=== PATIENT | female | born 1940 | race African-American/Black ===

== ENCOUNTER 2017-08-26 09:12 | Inpatient (IN) | payer BC, MEDICAID ==
[~2017-08-26] VITALS: Ht 157.5 cm; Wt 59.0 kg
[2017-08-26] MEDS ORDERED: NITROGLYCERIN OINT 1GM/INCH UDPKT TD ONE (09:30)
[2017-08-26] MEDS ORDERED: ASPIRIN 81MG TABLET PO ONE (09:30)
[2017-08-26 10:04] LABS: BASOPHILS % 0.3 % (0.0-2.0); EOSINOPHILS % 1.4 % (0.0-5.0); HEMATOCRIT. 39.9 % (36.0-48.0); HEMOGLOBIN. 13.2 g/dL (12.0-16.0); LYMPHOCYTES % 12.1 % (20.0-50.0); MEAN CORPUSCULAR HEMOGLOBIN 27.2 pg (28.0-32.0); MEAN CORPUSCULAR VOLUME 82.4 fL (81.0-99.0); MEAN PLATELET VOLUME 7.1 fl (7.4-10.4); MONOCYTES % 10.4 % (2.0-8.0); NEUTROPHILS % 75.8 % (40.0-76.0); PLATELET 251 x1000/uL (130-400); RED BLOOD CELL COUNT 4.84 mill/uL (4.2-5.4); RED CELL DISTRIBUTION WIDTH 16.9 % (11.6-14.6)
[2017-08-26 10:11] LABS: PROTHROMBIN TIME 10.9 sec (9.4-11.6)
[2017-08-26 10:14] LABS: CHLORIDE 98 mEq/L (98-107)
[2017-08-26 10:19] LABS: TROPONIN I 0.26 ng/mL (0.00-0.04)
[2017-08-26 12:00] VITALS: BP 108/66
[2017-08-26 12:40] VITALS: BP 108/66
[2017-08-26] MEDS ORDERED: MAGNESIUM/ALUMINUM HYDROXIDE/SIMETHICONE 30ML UDC PO PRN (13:30)
[2017-08-26] MEDS ORDERED: ACETAMINOPHEN 325MG TABLET PO PRN (13:30)
[2017-08-26] MEDS ORDERED: TRAMADOL 50MG TABLET PO PRN (13:30)
[2017-08-26] MEDS ORDERED: NA PHOS,M-B/NA PHOS,DI-BA ENEMA 118ML PR PRN (13:30)
[2017-08-26] MEDS ORDERED: GUAIFENESIN 200MG/10ML SUGAR FREE UDC PO PRN (13:30)
[2017-08-26] MEDS ORDERED: MORPHINE SULFATE 4 MG/ML CPJ (NOT FOR IM USE) IV PRN (13:30)
[2017-08-26] MEDS ORDERED: LORAZEPAM 0.5MG TABLET PO PRN (13:30)
[2017-08-26] MEDS ORDERED: ASPIRIN 325MG EC TABLET PO SCH (13:30)
[2017-08-26] MEDS ORDERED: CLONIDINE 0.1MG TABLET PO PRN (13:30)
[2017-08-26] MEDS ORDERED: ONDANSETRON HCL 4MG/2ML VIAL IV PRN (13:30)
[2017-08-26] MEDS ORDERED: IPRATROPIUM/ALBUTEROL 0.5-3(2.5)MG/3ML NEB INH PRN (13:30)
[2017-08-26] MEDS ORDERED: DIPHENHYDRAMINE 50MG/ML VIAL IV PRN (13:30)
[2017-08-26] MEDS ORDERED: DEXTROSE 50% WATER 50ML SYRINGE IV PRN (13:30)
[2017-08-26] MEDS ORDERED: NITROGLYCERIN 0.4MG TABLET SL SL PRN (13:30)
[2017-08-26] MEDS ORDERED: DOCUSATE SODIUM 100MG CAPSULE PO PRN (13:30)
[2017-08-26] MEDS: PANTOPRAZOLE SODIUM 40 MG/VIAL IV SCH (14:24)
[2017-08-26] MEDS: ENOXAPARIN 30MG/0.3ML SYR SUBCUT SCH (14:24)
[2017-08-26 16:00] VITALS: BP 122/57
[2017-08-26] MEDS: SEVELAMER CARBONATE 800 MG TABLET PO SCH (17:27)
[2017-08-26] MEDS: INSULIN LISPRO 100 UNITS/ML SUBCUT SCH ×2 (18:01→20:49)
[2017-08-26] MEDS: BLOOD SUGAR DIAGNOSTIC STRIP TEST SCH ×2 (18:01→20:49)
[2017-08-26 19:46] VITALS: BP 146/79
[2017-08-26 20:03] LABS: CREATINE KINASE MB FRACTION 4.2 ng/mL (0.5-3.6); TROPONIN I 0.3 ng/mL (0.00-0.04)
[2017-08-26 20:50] LABS: *AMPHETAMINES SCREEN URINE NEGATIVE (NEGATIVE); *BARBITURATES SCREEN URINE NEGATIVE (NEGATIVE); *BENZODIAZEPINES SCREEN URINE NEGATIVE (NEGATIVE); *COCAINE SCREEN URINE NEGATIVE (NEGATIVE); CANNABINOID URINE SCREEN NEGATIVE (NEGATIVE); METHADONE URINE SCREEN NEGATIVE (NEGATIVE); OPIATES URINE SCREEN NEGATIVE (NEGATIVE); PHENCYCLIDINE URINE SCREEN NEGATIVE (NEGATIVE)
[2017-08-26] MEDS ORDERED: METOPROLOL TARTRATE 25MG TABLET PO SCH (21:00)
[2017-08-26] MEDS ORDERED: ZOLPIDEM TARTRATE 5MG TABLET PO PRN (21:00)
[2017-08-27] VITALS (7 sets, daily range): BP systolic 121–200; BP diastolic 62–113
[2017-08-27] MEDS: BLOOD SUGAR DIAGNOSTIC STRIP TEST SCH ×4 (06:40→21:00)
[2017-08-27] MEDS: INSULIN LISPRO 100 UNITS/ML SUBCUT SCH ×4 (08:09→23:15)
[2017-08-27 08:12] LABS: CREATINE KINASE MB FRACTION 3.5 ng/mL (0.5-3.6); TROPONIN I 0.2 ng/mL (0.00-0.04)
[2017-08-27] MEDS ORDERED: ASPIRIN 325MG EC TABLET PO SCH (09:00)
[2017-08-27] MEDS ORDERED: FOLIC ACID/VITAMIN B COMP W-C TABLET PO SCH (09:00)
[2017-08-27] MEDS: SEVELAMER CARBONATE 800 MG TABLET PO SCH ×3 (09:03→18:10)
[2017-08-27] MEDS: PANTOPRAZOLE SODIUM 40 MG/VIAL IV SCH (09:05)
[2017-08-27] MEDS: ENOXAPARIN 30MG/0.3ML SYR SUBCUT SCH (09:05)
[2017-08-27] MEDS ORDERED: LISINOPRIL 20MG TABLET PO SCH (09:30)
[2017-08-27] MEDS ORDERED: DILTIAZEM HCL 60MG TABLET PO SCH (09:30)
[2017-08-27 15:22] LABS: *AMPHETAMINES SCREEN URINE NEGATIVE (NEGATIVE); *BARBITURATES SCREEN URINE NEGATIVE (NEGATIVE); *BENZODIAZEPINES SCREEN URINE NEGATIVE (NEGATIVE); *COCAINE SCREEN URINE NEGATIVE (NEGATIVE); CANNABINOID URINE SCREEN NEGATIVE (NEGATIVE); METHADONE URINE SCREEN NEGATIVE (NEGATIVE); OPIATES URINE SCREEN NEGATIVE (NEGATIVE); PHENCYCLIDINE URINE SCREEN NEGATIVE (NEGATIVE)
[2017-08-27] MEDS ORDERED: NITROGLYCERIN OINT 1GM/INCH UDPKT TD NR (19:30)
[2017-08-27] MEDS ORDERED: DOCUSATE SODIUM 100MG CAPSULE PO PRN (20:15)
[2017-08-27] MEDS ORDERED: DIPHENHYDRAMINE 50MG/ML VIAL IV PRN (20:15)
[2017-08-27] MEDS ORDERED: DEXTROSE 50% WATER 50ML SYRINGE IV PRN (20:15)
[2017-08-27] MEDS ORDERED: ACETAMINOPHEN 325MG TABLET PO PRN (20:15)
[2017-08-27] MEDS ORDERED: CLONIDINE 0.1MG TABLET PO PRN (20:15)
[2017-08-27] MEDS: DILTIAZEM HCL 60MG TABLET PO SCH (20:28)
[2017-08-27] MEDS: LISINOPRIL 20MG TABLET PO SCH (20:28)
[2017-08-27] MEDS ORDERED: ZOLPIDEM TARTRATE 5MG TABLET PO PRN (20:30)
[2017-08-27] MEDS ORDERED: NA PHOS,M-B/NA PHOS,DI-BA ENEMA 118ML PR PRN (20:30)
[2017-08-27] MEDS ORDERED: MORPHINE SULFATE 4 MG/ML CPJ (NOT FOR IM USE) IV PRN (20:30)
[2017-08-27] MEDS ORDERED: ONDANSETRON HCL 4MG/2ML VIAL IV PRN (20:30)
[2017-08-27] MEDS ORDERED: LORAZEPAM 0.5MG TABLET PO PRN (20:30)
[2017-08-27] MEDS ORDERED: GUAIFENESIN 200MG/10ML SUGAR FREE UDC PO PRN (20:30)
[2017-08-27] MEDS ORDERED: TRAMADOL 50MG TABLET PO PRN (20:30)
[2017-08-27] MEDS ORDERED: IPRATROPIUM/ALBUTEROL 0.5-3(2.5)MG/3ML NEB INH PRN (20:30)
[2017-08-27] MEDS ORDERED: MAGNESIUM/ALUMINUM HYDROXIDE/SIMETHICONE 30ML UDC PO PRN (20:30)
[2017-08-28 01:09] VITALS: BP 161/91
[2017-08-28 04:00] VITALS: BP 171/78
[2017-08-28] MEDS: BLOOD SUGAR DIAGNOSTIC STRIP TEST SCH ×2 (06:41→12:42)
[2017-08-28] MEDS: INSULIN LISPRO 100 UNITS/ML SUBCUT SCH ×2 (07:54→13:10)
[2017-08-28 08:00] VITALS: BP 186/94
[2017-08-28] MEDS: DILTIAZEM HCL 60MG TABLET PO SCH (08:17)
[2017-08-28] MEDS: SEVELAMER CARBONATE 800 MG TABLET PO SCH ×2 (08:17→13:25)
[2017-08-28] MEDS: LISINOPRIL 20MG TABLET PO SCH (08:18)
[2017-08-28] MEDS ORDERED: ENOXAPARIN 30MG/0.3ML SYR SUBCUT SCH (09:00)
[2017-08-28] MEDS ORDERED: ASPIRIN 325MG EC TABLET PO SCH (09:00)
[2017-08-28] MEDS ORDERED: FOLIC ACID/VITAMIN B COMP W-C TABLET PO SCH (09:00)
[2017-08-28] MEDS ORDERED: FAMOTIDINE 20MG TABLET PO SCH ×2 (09:00)
[2017-08-28] MEDS ORDERED: CLONIDINE 0.2MG TABLET PO SCH (09:00)
[2017-08-28 12:00] VITALS: BP 139/62
[2017-08-28] MEDS ORDERED: HYDRALAZINE HCL 50MG TABLET PO SCH (14:00)
== END 2017-08-28 15:20 | DRG 308 ==
LOC: ER 10:03 → 7WST 10:28 → ENRESERV 11:22 → UNDODISIN 08-27 18:56
PROVIDERS: ADMIT Internal Medicine; ATTEND Internal Medicine
DX: I48.0 Paroxysmal atrial fibrillation (principal); N18.6 End stage renal disease; E11.22 Type 2 diabetes mellitus with diabetic chronic kidney disease; I12.0 Hypertensive chronic kidney disease with stage 5 chronic kidney disease or end stage renal disease; R07.89 Other chest pain; I48.92 Unspecified atrial flutter; I45.2 Bifascicular block; E78.5 Hyperlipidemia, unspecified; D63.8 Anemia in other chronic diseases classified elsewhere; E78.00 Pure hypercholesterolemia, unspecified; Z79.4 Long term (current) use of insulin; Z79.899 Other long term (current) drug therapy; Z99.2 Dependence on renal dialysis
CPT/HCPCS: 36415; 71045; 80053; 80061; 80305; 82550; 82553; 82962; 83036; 84484; 85025; 85610; 85730; 87040; 87804; 93005; 93306; 93970; 99285; C9113; J1650; J1815

== ENCOUNTER 2018-02-17 08:49 | Inpatient (IN) | payer BC, MEDICAID, OTHER ==
[~2018-02-17] VITALS: Ht 157.5 cm; Wt 59.4 kg
[~2018-02-17 08:49] MED LIST: DILT60TA3 PO; FAMO20TA8 PO; GLIM4TAB2 PO; HYDR100T26 PO; LISI40TA4 PO; METO-539 PO; NIFE60TA77 PO; ONDA4TAB5 PO; SEVE800T8 PO
[2018-02-17] MEDS ORDERED: LABETALOL 5MG/ML SYR 20 MG/4 ML SYRINGE IV ONE (11:15)
[2018-02-17] MEDS ORDERED: HYDRALAZINE 20MG/ML VIAL IV ONE (11:30)
[2018-02-17 11:34] LABS: BASOPHILS % 0.7 % (0.0-2.0); EOSINOPHILS % 5.6 % (0.0-5.0); HEMATOCRIT. 34.7 % (36.0-48.0); HEMOGLOBIN. 11.7 g/dL (12.0-16.0); LYMPHOCYTES % 36.5 % (20.0-50.0); MEAN CORPUSCULAR HEMOGLOBIN 28.6 pg (28.0-32.0); MEAN CORPUSCULAR VOLUME 84.6 fL (81.0-99.0); MEAN PLATELET VOLUME 7.1 fl (7.4-10.4); MONOCYTES % 10.2 % (2.0-8.0); PLATELET 214 x1000/uL (130-400)
[2018-02-17 11:39] LABS: CHLORIDE 99 mEq/L (98-107)
[2018-02-17 11:42] LABS: PARTIAL THROMBOPLASTIN TIME 28.3 sec (23.4-31.0); PROTHROMBIN TIME 10.3 sec (9.1-11.1)
[2018-02-17 16:10] VITALS: BP 179/80
[2018-02-17] MEDS ORDERED: ONDANSETRON HCL 4MG/2ML VIAL IV PRN (16:15)
[2018-02-17] MEDS ORDERED: ACETAMINOPHEN 325MG TABLET PO PRN (16:15)
[2018-02-17] MEDS ORDERED: IPRATROPIUM/ALBUTEROL 0.5-3(2.5)MG/3ML NEB INH PRN (16:15)
[2018-02-17] MEDS ORDERED: DEXTROSE 50% WATER 50ML SYRINGE IV PRN (16:30)
[2018-02-17 16:40] VITALS: BP 179/80
[2018-02-17] MEDS: BLOOD SUGAR DIAGNOSTIC STRIP TEST SCH ×2 (17:20→20:38)
[2018-02-17] MEDS: CLONIDINE 0.1MG TABLET PO PRN (17:21)
[2018-02-17] MEDS: HYDROCODONE/ACETAMINOPHEN 5/325MG TABLET PO PRN ×2 (17:22→22:56)
[2018-02-17] MEDS: INSULIN LISPRO 100 UNITS/ML SUBCUT SCH ×2 (17:31→20:38)
[2018-02-17] MEDS ORDERED: GLIM4TAB2 MT (18:15)
[2018-02-17] MEDS ORDERED: CALC-769 MT (18:15)
[2018-02-17] MEDS ORDERED: CLON1PAT11 TD (18:15)
[2018-02-17] MEDS ORDERED: FOLI0.4T2 PO (18:15)
[2018-02-17] MEDS ORDERED: SALM1CAP4 PO (18:15)
[2018-02-17 20:00] VITALS: BP 163/75
[2018-02-17] MEDS: HYDRALAZINE HCL 100MG TABLET PO SCH (20:37)
[2018-02-17] MEDS: DILTIAZEM HCL 60MG TABLET PO SCH (20:37)
[2018-02-18] VITALS: BP 157/66
[2018-02-18 04:00] VITALS: BP 113/59
[2018-02-18] MEDS: DILTIAZEM HCL 60MG TABLET PO SCH ×3 (05:48→13:56)
[2018-02-18] MEDS: HYDRALAZINE HCL 100MG TABLET PO SCH ×3 (05:53→13:55)
[2018-02-18] MEDS: BLOOD SUGAR DIAGNOSTIC STRIP TEST SCH ×4 (06:56→20:21)
[2018-02-18 07:49] LABS: BASOPHILS % 0.8 % (0.0-2.0); EOSINOPHILS % 5.3 % (0.0-5.0); HEMATOCRIT. 32.6 % (36.0-48.0); LYMPHOCYTES % 34.8 % (20.0-50.0); MEAN CORPUSCULAR HEMOGLOBIN 28.5 pg (28.0-32.0); MEAN CORPUSCULAR VOLUME 84.6 fL (81.0-99.0); MEAN PLATELET VOLUME 7.3 fl (7.4-10.4); MONOCYTES % 10.9 % (2.0-8.0); NEUTROPHILS % 48.2 % (40.0-76.0); PLATELET 209 x1000/uL (130-400); RED BLOOD CELL COUNT 3.85 mill/uL (4.2-5.4)
[2018-02-18] MEDS: INSULIN LISPRO 100 UNITS/ML SUBCUT SCH ×4 (07:50→21:25)
[2018-02-18 08:00] VITALS: BP 152/68
[2018-02-18 08:00] LABS: CHLORIDE 99 mEq/L (98-107)
[2018-02-18 08:13] LABS: CREATINE KINASE 203 IU/L (26-192); T4 FREE 1.39 ng/dL (0.76-1.46)
[2018-02-18 08:14] LABS: HDL CHOLESTEROL 86 mg/dL (40-59); LDL CHOLESTEROL 85 mg/dL (5-100)
[2018-02-18 12:00] VITALS: BP 152/69
[2018-02-18 16:00] VITALS: BP 168/81
[2018-02-18] MEDS: ENOXAPARIN 30MG/0.3ML SYR SUBCUT SCH (17:25)
[2018-02-18] MEDS: ASPIRIN 325MG EC TABLET PO SCH (17:25)
[2018-02-18] MEDS: CLONIDINE 0.1MG TABLET PO PRN (17:25)
[2018-02-18] MEDS: GABAPENTIN 100MG CAPSULE PO SCH (18:00)
[2018-02-18 20:00] VITALS: BP 154/66
[2018-02-18] MEDS: METOPROLOL TARTRATE 50MG TABLET PO SCH (20:17)
[2018-02-18] MEDS: ATORVASTATIN CALCIUM 20MG TABLET PO SCH (20:21)
[2018-02-18] MEDS ORDERED: ATORVASTATIN CALCIUM 40MG TABLET PO SCH (21:00)
[2018-02-18] MEDS: HYDRALAZINE HCL 50MG TABLET PO SCH (21:25)
[2018-02-19] VITALS: BP 167/75
[2018-02-19] MEDS: CLONIDINE 0.1MG TABLET PO PRN ×2 (00:32→06:52)
[2018-02-19 05:00] VITALS: BP 180/70
[2018-02-19] MEDS: HYDRALAZINE HCL 50MG TABLET PO SCH ×3 (05:25→22:50)
[2018-02-19] MEDS: BLOOD SUGAR DIAGNOSTIC STRIP TEST SCH ×4 (06:51→21:00)
[2018-02-19] MEDS: INSULIN LISPRO 100 UNITS/ML SUBCUT SCH ×4 (07:49→21:00)
[2018-02-19 08:00] VITALS: BP 194/87
[2018-02-19] MEDS: METOPROLOL TARTRATE 50MG TABLET PO SCH ×2 (08:50→21:00)
[2018-02-19] MEDS: ASPIRIN 325MG EC TABLET PO SCH (08:50)
[2018-02-19] MEDS: NITROGLYCERIN OINT 1GM/INCH UDPKT TD SCH ×3 (08:51→17:23)
[2018-02-19] MEDS: GABAPENTIN 100MG CAPSULE PO SCH ×2 (09:00→17:00)
[2018-02-19 10:30] VITALS: BP 160/73
[2018-02-19 12:00] VITALS: BP 154/67
[2018-02-19] MEDS: NIFEDIPINE XL 60MG TAB PO SCH (12:20)
[2018-02-19] MEDS: ENOXAPARIN 30MG/0.3ML SYR SUBCUT SCH (17:22)
[2018-02-19 20:00] VITALS: BP 109/46
[2018-02-19] MEDS: ATORVASTATIN CALCIUM 20MG TABLET PO SCH (21:00)
[2018-02-20] VITALS: BP 112/57
[2018-02-20 04:00] VITALS: BP 120/66
[2018-02-20] MEDS: NITROGLYCERIN OINT 1GM/INCH UDPKT TD SCH ×3 (06:00→06:53)
[2018-02-20] MEDS: HYDRALAZINE HCL 50MG TABLET PO SCH (07:00)
[2018-02-20] MEDS: BLOOD SUGAR DIAGNOSTIC STRIP TEST SCH (07:05)
[2018-02-20] MEDS: INSULIN LISPRO 100 UNITS/ML SUBCUT SCH (07:50)
[2018-02-20 08:00] VITALS: BP 182/80
[2018-02-20] MEDS: GABAPENTIN 100MG CAPSULE PO SCH ×2 (09:00→09:36)
[2018-02-20] MEDS: NIFEDIPINE XL 60MG TAB PO SCH (09:37)
[2018-02-20] MEDS: METOPROLOL TARTRATE 50MG TABLET PO SCH (09:37)
[2018-02-20] MEDS: ASPIRIN 325MG EC TABLET PO SCH (09:37)
[2018-02-20] MEDS: CLONIDINE 0.1MG TABLET PO PRN (11:31)
== END 2018-02-20 11:37 | DRG 308 ==
LOC: ER 09:23 → EDBEDREQ 09:53 → 6WST 12:48 → EDBEDREQTM 12:49 → EDBEDREQ 12:49 → ENRESERV 13:06
PROVIDERS: ADMIT Internal Medicine; ATTEND Internal Medicine
PROC: 5A1D70Z Performance of Urinary Filtration, Intermittent, Less than 6 Hours Per Day (ICD-10-PCS; principal; 2018-02-20)
DX: I48.0 Paroxysmal atrial fibrillation (principal); N18.6 End stage renal disease; I12.0 Hypertensive chronic kidney disease with stage 5 chronic kidney disease or end stage renal disease; E78.00 Pure hypercholesterolemia, unspecified; E11.22 Type 2 diabetes mellitus with diabetic chronic kidney disease; R55 Syncope and collapse; E78.5 Hyperlipidemia, unspecified; Z99.2 Dependence on renal dialysis; Z86.73 Personal history of transient ischemic attack (TIA), and cerebral infarction without residual deficits; Z79.899 Other long term (current) drug therapy
CPT/HCPCS: 36415; 71045; 80053; 80061; 82550; 82962; 83880; 84439; 84443; 84484; 85025; 85610; 85730; 93005; 96374; 99285; J0360; J1650; J1815

== ENCOUNTER 2019-08-03 15:07 | Inpatient (IN) | payer MEDICARE, MEDICAID ==
[~2019-08-03] VITALS: Ht 165.1 cm; Wt 59.9 kg
[~2019-08-03 15:07] MED LIST changes: +CALC-769 MT; +CLON1PAT11 TD; -DILT60TA3 PO; -FAMO20TA8 PO; +FOLI0.4T2 PO; -GLIM4TAB2 PO; +GLIM4TAB36 MT; -ONDA4TAB5 PO; +SALM1CAP4 PO
[2019-08-03 17:08] LABS: MEAN CORPUSCULAR HEMOGLOBIN 29.4 pg (28.0-32.0); MEAN CORPUSCULAR VOLUME 93.5 fL (81.0-99.0); MEAN PLATELET VOLUME 7.4 fl (7.4-10.4); PLATELET 207 x1000/uL (130-400); RED BLOOD CELL COUNT 2.01 mill/uL (4.2-5.4)
[2019-08-03 17:10] LABS: HEMATOCRIT. 18.8 % (36.0-48.0); HEMOGLOBIN. 5.9 g/dL (12.0-16.0)
[2019-08-03 17:12] LABS: CHLORIDE 103 mEq/L (98-107)
[2019-08-03 17:13] LABS: INR 1.3; PARTIAL THROMBOPLASTIN TIME 53.5 sec (23.4-31.0); PROTHROMBIN TIME 12.9 sec (9.6-11.0)
[2019-08-03 17:17] LABS: ETHANOL BLOOD < 10 mg/dL
[2019-08-03 17:20] LABS: LDL CHOLESTEROL 44 mg/dL (5-100)
[2019-08-03 17:22] LABS: CREATINE KINASE 42 IU/L (26-192)
[2019-08-03 17:25] LABS: CREATINE KINASE MB FRACTION 5.2 ng/mL (0.5-3.6)
[2019-08-03 17:41] LABS: PLATELET ESTIMATE NORMAL
[2019-08-03] MEDS ORDERED: PIPERACILLIN/TAZ 3.375G PREMIX 50 ML IV ONE (18:15)
[2019-08-03] MEDS ORDERED: VANCOMYCIN 1 G PREMIX 200 ML IV SCH (18:15)
[2019-08-03] MEDS ORDERED: IPRATROPIUM/ALBUTEROL 0.5-3(2.5)MG/3ML NEB NEB PRN (18:45)
[2019-08-03] MEDS ORDERED: LORAZEPAM 2MG/ML CPJ IV PRN (18:45)
[2019-08-03] MEDS ORDERED: ACETAMINOPHEN 650MG SUPP PR PRN (18:45)
[2019-08-03] MEDS ORDERED: ONDANSETRON HCL 4MG/2ML INJ IV PRN (18:45)
[2019-08-03] MEDS ORDERED: MORPHINE SULFATE 2 MG/ML CPJ (NOT FOR IM USE) IV PRN (18:45)
[2019-08-03 21:30] VITALS: BP 143/59
[2019-08-04] VITALS: BP 171/71
[2019-08-04 04:00] VITALS: BP 155/71
[2019-08-04 08:00] VITALS: BP 151/66
[2019-08-04] MEDS ORDERED: CLONIDINE 0.1MG TABLET PO PRN (09:45)
[2019-08-04] MEDS ORDERED: DEXTROSE 50% WATER 50ML SYRINGE IV PRN (09:45)
[2019-08-04 12:00] VITALS: BP 175/60
[2019-08-04] MEDS ORDERED: BLOOD SUGAR DIAGNOSTIC STRIP TEST SCH (12:20)
[2019-08-04] MEDS ORDERED: INSULIN LISPRO 100 UNITS/ML SUBCUT SCH (12:50)
[2019-08-04 14:11] VITALS: BP 158/65
== END 2019-08-04 16:30 | DRG 871 ==
LOC: ER 15:07 → 6EST 18:38 → EDBEDREQ 18:39 → EDBEDREQSVC 18:39 → ENRESERV 20:21
PROVIDERS: ADMIT Internal Medicine; ATTEND Internal Medicine
DX: A41.9 Sepsis, unspecified organism (principal); J18.9 Pneumonia, unspecified organism; I50.33 Acute on chronic diastolic (congestive) heart failure; N18.6 End stage renal disease; J96.90 Respiratory failure, unspecified, unspecified whether with hypoxia or hypercapnia; I13.2 Hypertensive heart and chronic kidney disease with heart failure and with stage 5 chronic kidney disease, or end stage renal disease; G93.40 Encephalopathy, unspecified; I31.3 Pericardial effusion (noninflammatory); Z66 Do not resuscitate; D64.9 Anemia, unspecified; E11.22 Type 2 diabetes mellitus with diabetic chronic kidney disease; I48.91 Unspecified atrial fibrillation; I95.3 Hypotension of hemodialysis; R62.7 Adult failure to thrive; Z51.5 Encounter for palliative care; Z86.73 Personal history of transient ischemic attack (TIA), and cerebral infarction without residual deficits; Z99.2 Dependence on renal dialysis; Z79.899 Other long term (current) drug therapy; I25.2 Old myocardial infarction; Z68.22 Body mass index [BMI] 22.0-22.9, adult
CPT/HCPCS: 36415; 71045; 80053; 80320; 82550; 82553; 82962; 83605; 83721; 83880; 84145; 84443; 84484; 85025; 93005; 99291; J2543; J3370; G0480